=== PATIENT | male | born 1960 | race Caucasian/White ===

== ENCOUNTER 2017-12-26 15:56 | Emergency (ER) | payer BC ==
[~2017-12-26] VITALS: Ht 162.6 cm; Wt 60.0 kg
[~2017-12-26 15:56] MED LIST: ASPI81TA82 PO; DICL75 PO; METO25CR PO; MISC1TAB9 PO; MULT1TAB46 PO
[2017-12-26 16:05] VITALS: BP 142/86; PULSE 66; RESP 16; TEMP 98.3; O2SAT 97
[2017-12-26] MEDS ORDERED: SODIUM CHLOR 0.9% 1000 ML INJ 1,000 ML IV ONE (19:15)
[2017-12-26] MEDS ORDERED: MORPHINE SULFATE 2 MG/ML SYRINGE IV PUSH ONE (19:15)
[2017-12-26] MEDS ORDERED: KETOROLAC TROMETHAMINE 30 MG/ML (IVP) VIAL IV PUSH ONE (19:15)
--- NOTE | 2017-12-26 19:59 | PD ---
HPI Chief Complaint: Abdominal Pain Time Seen by Provider: 19:07 Travel History International Travel<30 days: No Contact w/Intl Traveler<30days: No Traveled to known affect area: No History of Present Illness HPI Patient is a 57 year old male who comes in complaining of RLQ abdominal pain. He says it started last night and has been getting worse. He says that at first , the pain was coming and going, but now is more constant. He says he tried taking Naproxen without relief of his symptoms. He denies nausea or vomiting. He says he thinks he has a fever now because he has chills. He denies any urinary symptoms or change in bowel habits. He says he went to urgent care and they told him to come here to rule out appendicitis. Severity is mild to moderate. PFSH Past Medical History Cardiovascular Problems: Yes Immunizations Current: Yes Tetanus Vaccination: > 5 Years Influenza Vaccination: No Social History Alcohol Use: Yes (2 SHOTS OF BUR[place] BEFORE BED EVEYNIGHT) Tobacco Use: No Substance Use: No Allergies-Medications (Allergen,Severity, Reaction): Coded Allergies: No Known Allergies (Unverified , 11/06/14) Reported Meds & Prescriptions Reported Meds & Active Scripts Active Reported Multi Vitamin Daily (Multiple Vitamin) 1 Tab Tab 1 Tab PO Osteo Bi-Flex/5-Loxin Adv (Glucosamine Sulfate) 1 Tab Tab 2 Tab PO Aspir-81 (Aspirin) 81 Mg Tab 81 Mg PO DAILY Diclofenac Sodium Dr (Diclofenac Sod) 75 Mg Tab 1 Tab PO BID PRN Metoprolol Succinate ER 25 mg (Metoprolol Succinate) 25 Mg Tab 25 Mg PO DAILY Review of Systems Except as stated in HPI: all other systems reviewed are Neg General / Constitutional: No: Fever, Chills HENT: No: Headaches, Lightheadedness Cardiovascular: No: Chest Pain or Discomfort Respiratory: No: Shortness of Breath Gastrointestinal: Positive: Abdominal Pain, No: Nausea, Vomiting Genitourinary: No: Dysuria Musculoskeletal: No: Myalgias, Edema Skin: No Rash, No Change in Pigmentation Neurologic: No: Weakness, Dizziness Physical Exam Narrative GENERAL: Awake and alert, in no acute distress. SKIN: Focused skin assessment warm/dry. No wounds or signs of infection. HEAD: Atraumatic. Normocephalic. EYES: Pupils equal and round. No scleral icterus. ENT: Mucous membranes pink and moist. NECK: Trachea midline. No JVD. CARDIOVASCULAR: Regular rate and rhythm. No murmur appreciated. RESPIRATORY: No accessory muscle use. Clear to auscultation. Breath sounds equal bilaterally. GASTROINTESTINAL: Abdomen soft, nondistended. Tender to palpation of the RLQ. No rebound or guarding. No CVA tenderness. MUSCULOSKELETAL: No obvious deformities. No clubbing. No cyanosis. No edema. NEUROLOGICAL: Awake and alert. No obvious cranial nerve deficits. Motor grossly within normal limits. Normal speech. PSYCHIATRIC: Appropriate mood and affect; insight and judgment normal. Data Data Last Documented VS Vital Signs Date Time Temp Pulse Resp B/P (MAP) Pulse Ox O2 Delivery O2 Flow Rate FiO2 12/26/17 20:57 16 12/26/17 16:05 98.3 66 142/86 (104) 97 Orders Orders Complete Blood Count With Diff (12/26/17 18:32) Comprehensive Metabolic Panel (12/26/17 18:32) Urinalysis - C+S If Indicated (12/26/17 18:32) Iv Access Insert/Monitor (12/26/17 19:14) Ct Abd/Pel W Iv Contrast(Rout) (12/26/17 ) Ketorolac Inj (Toradol Inj) (12/26/17 19:15) Morphine Inj (Morphine Inj) (12/26/17 19:15) Sodium Chlor 0.9% 1000 Ml Inj (Ns 1000 M (12/26/17 19:15) Morphine Inj (Morphine Inj) (12/26/17 20:00) Iohexol 350 Inj (Omnipaque 350 Inj) (12/26/17 21:11) Labs Laboratory Tests Test 12/26/17 19:40 White Blood Count 4.9 TH/MM3 Red Blood Count 4.63 MIL/MM3 Hemoglobin 14.5 GM/DL Hematocrit 42.7 % Mean Corpuscular Volume 92.3 FL Mean Corpuscular Hemoglobin 31.4 PG Mean Corpuscular Hemoglobin Concent 34.0 % Red Cell Distribution Width 13.2 % Platelet Count 219 TH/MM3 Mean Platelet Volume 7.7 FL Neutrophils (%) (Auto) 46.1 % Lymphocytes (%) (Auto) 35.8 % Monocytes (%) (Auto) 14.8 % Eosinophils (%) (Auto) 2.4 % Basophils (%) (Auto) 0.9 % Neutrophils # (Auto) 2.3 TH/MM3 Lymphocytes # (Auto) 1.7 TH/MM3 Monocytes # (Auto) 0.7 TH/MM3 Eosinophils # (Auto) 0.1 TH/MM3 Basophils # (Auto) 0.0 TH/MM3 CBC Comment DIFF FINAL Differential Comment Urine Color LIGHT-YELLOW Urine Turbidity CLEAR Urine pH 6.5 Urine Specific [place] 1.010 Urine Protein NEG mg/dL Urine Glucose (UA) NEG mg/dL Urine Ketones TRACE mg/dL Urine Occult Blood NEG Urine Nitrite NEG Urine Bilirubin NEG Urine Urobilinogen LESS THAN 2.0 MG/DL Urine Leukocyte Esterase NEG Microscopic Urinalysis Comment CULT NOT INDICATED Blood Urea Nitrogen 19 MG/DL Creatinine 0.85 MG/DL Random Glucose 78 MG/DL Total Protein 7.0 GM/DL Albumin 4.1 GM/DL Calcium Level 9.2 MG/DL Alkaline Phosphatase 69 U/L Aspartate Amino Transf (AST/SGOT) 25 U/L Alanine Aminotransferase (ALT/SGPT) 33 U/L Total Bilirubin 0.6 MG/DL Sodium Level 140 MEQ/L Potassium Level 4.0 MEQ/L Chloride Level 104 MEQ/L Carbon Dioxide Level 28.4 MEQ/L Anion Gap 8 MEQ/L Estimat Glomerular Filtration Rate 92 ML/MIN [facility] Medical Decision Making Medical Screen Exam Complete: Yes Emergency Medical Condition: Yes Medical Record Reviewed: Yes Differential Diagnosis appendicitis vs UTI vs renal stone Narrative Course Patient is a 57 year old male who comes in complaining of abdominal pain. Exam shows RLQ abdominal tenderness. IV established, labs sent. Labs show no acute abnormalities. CT abd/pelvis performed shows no acute abnormalities. Last 24 hours Impressions Abdomen/Pelvis CT 12/26/17 0000 Signed Impressions: CONCLUSION: Hepatic hemangioma. Given IVF, toradol, morphine. He reports feeling better. Advised to continue Ibuprofen or Naproxen as needed for pain. Advised to follow up with a primary care doctor. Advised to return to the ED as needed for any worsening symptoms. Diagnosis Primary Impression: Abdominal pain Qualified Codes: R10.31 - Right lower quadrant pain Patient Instructions: Abdominal Pain (ED), General Instructions Additional Instructions: Take Ibuprofen as needed for pain. Follow up with your doctor. Return to the ED as needed for any worsening symptoms. Disposition: 01 DISCHARGE HOME Condition: Stable Carmen Serrano MD Dec 26, 2017 19:59
[2017-12-26] MEDS ORDERED: MORPHINE SULFATE 4 MG/ML INJ IV PUSH ONE (20:00)
[2017-12-26 20:25] LABS: AUTOMATED NEUTROPHIL # 2.3 TH/MM3 (1.8-7.7); BASOPHIL % 0.9 % (0.0-2.0); EOSINOPHIL # 0.1 TH/MM3 (0-0.4); EOSINOPHIL % 2.4 % (0.0-4.0); HEMATOCRIT 42.7 % (39.0-51.0); HEMOGLOBIN 14.5 GM/DL (13.0-17.0); LYMPH % 35.8 % (9.0-44.0); LYMPHOCYTE # 1.7 TH/MM3 (1.0-4.8); MEAN CELL VOLUME 92.3 FL (80.0-100.0); MEAN CORPUSCULAR HEMOGLOBIN 31.4 PG (27.0-34.0); MEAN PLATELET VOLUME 7.7 FL (7.0-11.0); MONO % 14.8 % (0.0-8.0); MONOCYTE # 0.7 TH/MM3 (0-0.9); NEUT % 46.1 % (16.0-70.0); PLATELET COUNT 219 TH/MM3 (150-450); RED BLOOD COUNT 4.63 MIL/MM3 (4.50-5.90); RED CELL DISTRIBUTION WIDTH 13.2 % (11.6-17.2); WHITE BLOOD COUNT 4.9 TH/MM3 (4.0-11.0)
[2017-12-26 20:32] LABS: BILIRUBIN, URINE NEG (NEG); BLOOD, URINE NEG (NEG); GLUCOSE,URINE NEG (NEG); KETONE, URINE TRACE mg/dL (NEG); NITRITE,URINE NEG (NEG); PH, URINE 6.5 (5.0-8.5); URINE COLOR LIGHT-YELLOW (YELLW/STRAW); URINE LEUKOCYTE ESTERASE NEG (NEG)
[2017-12-26 20:42] LABS: ALBUMIN 4.1 GM/DL (3.4-5.0); AST (GOT) 25 U/L (15-37); BICARBONATE 28.4 MEQ/L (21.0-32.0); BLOOD UREA NITROGEN 19 MG/DL (7-18); CALCIUM 9.2 MG/DL (8.5-10.1); CHLORIDE 104 MEQ/L (98-107); CREATININE 0.85 MG/DL (0.60-1.30); GLOMERULAR FILTRATION RATE 92 ML/MIN (>89); GLUCOSE,RANDOM 78 MG/DL (74-106); SODIUM (NA) 140 MEQ/L (136-145)
[2017-12-26 20:43] LABS: ALT (GPT) 33 U/L (12-78)
[2017-12-26 20:45] LABS: ALKALINE PHOSPHATASE 69 U/L (45-117); TOTAL BILIRUBIN ADULT 0.6 MG/DL (0.2-1.0)
[2017-12-26 20:57] VITALS: RESP 16
[2017-12-26] MEDS ORDERED: IOHEXOL 350 MG/ML 10 ML VIAL (for RAD DIAG) IVCONTRAST ONE (21:11)
--- NOTE | 2017-12-26 21:30 | RADRPT ---
EXAM DATE: 12/26/2017 9:14 PM EDT AGE/SEX: 57 years / Male INDICATIONS: Right lower quadrant abdomen pain. CLINICAL DATA: This is the patient's initial encounter. Patient reports that signs and symptoms have been present for 1 day and indicates a pain score of 7/10. MEDICAL/SURGICAL HISTORY: None. . ORAL CONTRAST: No oral contrast ingested. RADIATION DOSE: 4.99 CTDI (mGy) COMPARISON: No prior exams available for comparison. TECHNIQUE: Multiple contiguous axial images were obtained through the abdomen and pelvis following b olus infusion of 100 ml Omnipaque 350 (iohexol) nonionic water-soluble contrast as a single exam do se. No oral contrast ingested. Using automated exposure control and adjustment of the mA and/or kV a ccording to patient size, the radiation dose was kept as low as reasonably achievable to obtain optim al diagnostic quality images. FINDINGS: Abdomen CT: The spleen, pancreas, kidneys, adrenals are unremarkable. Approximate 2.1 cm hemangioma is present wi th peripheral nodular enhancement involving the right hepatic lobe anteriorly near the dome. There is no evidence for any appreciable pathological adenopathy, free fluid, or bowel obstruction. Pelvic CT: There is no evidence for mass, abscess formation, or any significant adenopathy within the pelvis. T here is moderate amount of stool in the colon. The appendix is not clearly visualized, however no de finite signs of appendicitis is identified for technique. CONCLUSION: Hepatic hemangioma. Electronically signed by: Rebecca Agarwal MD 12/26/2017 9:28 PM EDT
== END 2017-12-26 21:57 | disposition home or self-care (01) ==
LOC: NEPD 15:56
DX: R10.31 Right lower quadrant pain (principal)
CPT/HCPCS: 74177; 80053; 81001; 85025; 96361; 96374; 96375; 99284; J1885; J2270; J7030; Q9967